=== PATIENT | female | born 1955 | race Caucasian/White ===

== ENCOUNTER 2021-10-05 08:49 | Outpatient (CLI) | payer OTHER | END 2021-10-05 08:50 | disposition home or self-care (01) | LOC: LABBT 08:49 | PROVIDERS: ATTEND Student in an Organized Health Care Education/Training Program | DX: J69.0 Pneumonitis due to inhalation of food and vomit (principal); R13.13 Dysphagia, pharyngeal phase; Z20.822 Contact with and (suspected) exposure to COVID-19 | CPT/HCPCS: 87811 ==

== ENCOUNTER 2021-10-06 10:49 | Outpatient (CLI) | payer OTHER | END 2021-10-06 10:50 | disposition home or self-care (01) | LOC: RAD 10:49 | PROVIDERS: ATTEND Student in an Organized Health Care Education/Training Program | DX: R13.13 Dysphagia, pharyngeal phase (principal); J69.0 Pneumonitis due to inhalation of food and vomit | CPT/HCPCS: 74230 ==

== ENCOUNTER 2022-10-14 07:39 | Outpatient (CLI) | payer OTHER ==
[2022-10-14] MEDS ORDERED: ADENOSINE 60 MG/20 ML SDV ONE (08:46)
== END 2022-10-14 07:40 | disposition home or self-care (01) ==
LOC: NM 07:39
PROVIDERS: ATTEND Student in an Organized Health Care Education/Training Program
DX: I20.8 Other forms of angina pectoris (principal); R94.39 Abnormal result of other cardiovascular function study
CPT/HCPCS: 78452; 93017; A9500; J0153